=== PATIENT | male | born 1965 | race Caucasian/White ===

== ENCOUNTER 2017-05-16 02:42 | Emergency (ER) | payer MEDICARE ==
[~2017-05-16] VITALS: Ht 175.3 cm; Wt 90.7 kg
[~2017-05-16 02:42] MED LIST: ABILIFY20 MG; DEPAKOTE 500MG500 MG PO
[2017-05-16] MEDS ORDERED: PROZAC 20MG CAP20 MG PO (02:56)
[2017-05-16 03:20] LABS: LYMPH # 2.5 K/mm3 (0.7-4.5); LYMPH % 35.4 % (10-50)
[2017-05-16 03:24] LABS: HEMOGLOBIN 13.5 g/dL (14.1-18.0)
[2017-05-16] MEDS ORDERED: METFORMIN 500M500 MG PO (03:55)
--- NOTE | 2017-05-16 03:59 | Emergency Room Report ---
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 N Clinical Suspician of Infection? N Mental Status: 1 - Regular (Normal Baseline) Sepsis Risk:Low Sepsis Risk Have you (or family members/close friends) recently traveled outside the [place]? N If Yes, where/when: Have you had exposure to infectious disease within the past month? N TB? Other? Specify: Source patient, RN notes reviewed, old records Exam Limitations no limitations Comment pt with elevated glu at home and presentes for eval- no chest pain or fever and no other c/o - has been compliant with diet and meds Cardiac Chest Pain Chest pain indicative of cardiac No Timing/Duration this evening Severity moderate ALLERGIES Coded Allergies: No Known Allergies (05/16/17) Home Medications Reported Medications Divalproex Sodium (Depakote) 500 MG PO BID #60 TAB Aripiprazole (Abilify) Fluoxetine Hcl (Prozac 20MG Capsule(Generic)) 20 MG PO DAILY METFORMIN HCL (Metformin 500MG) 500 MG PO BID History Medical History General CAD? No Angina: No [place]: No Hypertension? Yes Hyperlipidemia? No CHF? No DVT? No PE? No COPD? No Asthma? Yes Anemia? No GERD? No Gastric ulcers? No GI Bleed? No Hernia? Yes Thyroid Problems? No Hypothyroidism? No CVA? No Seizures? No Diabetes? No Insulin Dependent: No Insulin Pump: No Home FSBS? Yes Renal Insuffiency? No End Stage Renal Disease? No UTI? Yes Stones? Yes BPH? No GB Disease: No Nephritic Syndrome? No Asplenia? No Hepatitis? No Sickle Cell Disease? No Arthritis? No Migraines? No Cataracts? No Glaucoma? No MRSA? No HIV? No TB? No Anxiety? No Depression? No Cancer? No More? No Immunization Hx DT/Tetanus > 10 Years Ago Flu [id number] Flu Season Pneumonia Received In Past Surgical Hx Previous Surgery?Y RIGHT ANKLE FX LT FOOT LAWNMOWER ACCIDEN RECONSTRUCTIVE FACIAL SX AORTIC VEIN REATTACHMENT Family History Family Hx Diabetes No CAD No Hypertension No Hyperlipidemia No Cancer Yes TB No Social History Smoking Hx Smoker: Never Smoker Tobacco: No Are you/the child exposed to second-hand smoke: No Alcohol Alcohol: No Drugs none Review of Systems All Other Systems Reviewed and Negative Constitutional denies fever Eyes denies drainage ENT denies: ear discharge, epistaxis, throat pain. Respiratory denies cough, denies shortness of breath Cardiovascular denies chest pain, denies palpitations, denies syncope Gastrointestinal denies abdominal pain, denies diarrhea, denies vomiting Genitourinary denies: dysuria, frequency, hesitancy, hematuria. Musculoskeletal denies back pain, denies joint pain, denies joint swelling, denies neck pain Skin denies rash Psychiatric/Neurological denies headache, denies seizure Physical Exam Vital Signs Vital Signs Date Time Temp Pulse Resp B/P Pulse O2 O2 Flow FiO2 Ox Delivery Rate 05/16 0346 84 20 136/73 96 05/16 0249 97.9 88 20 140/77 98 - WBC >12,000 or <4,000 or 10% bands? 2 or more SIRS Criteria Met? B/P:136/73 MAP:98 Creatinine >2.0? UA output<0.5ml/kg/hr for 2 hrs? Platelet count >100,000? Lactate >2.0mmol/1? INR >1.2 or PTT > than 60 sec? Evidence of Organ Dysfunction? Provider documented clinical suspician of infection? N Sepsis Criteria Count: 1 Sepsis Risk: Low Sepsis Risk General Appearance no apparent distress Eye Exam - bilateral eye PERRL, bilateral eye EOMI Ear, Nose, Throat normal ENT inspection Neck supple Respiratory Status No: respiratory distress. Lung Sounds bilateral: lungs clear. 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 No Results/Orders Laboratory Tests 05/16/17 0353: POC Glucose 193 H 05/16/17 0300: Sodium 136, Potassium 4.9, Chloride 101, Carbon Dioxide 26, BUN 23 H, Creatinine 0.9, Estimated Creat Clear 126, Estimated GFR (MDRD) 89, Glucose 268 H, Calcium 9.1, Total Bilirubin 0.2, AST 34, ALT 30, Alkaline Phosphatase 46, Total Protein 6.6, Albumin 3.6, Globulin 3.0, Albumin/Globulin Ratio 1.2, WBC 7.1, RBC 3.96 L, Hgb 13.5 L, Hct 39.2 L, MCV 99.0 H, RDW 12.3, Plt Count 174 , MPV 7.4, Gran % 58.4, Gran # 4.1, Lymphocytes % 35.4, Monocytes % 4.5, Eosinophils % 1.4, Basophils % 0.3, Lymphocytes # 2.5, Monocytes # 0.3, Eosinophils # 0.1, Basophils # 0.0, PUBS MCHC 34.3, MCH 34.0 H 05/16/17 0248: POC Glucose 270 H Current Medication Orders Sig/Deric Start time Last Medication Dose Route Stop Time Status Admin Sodium Chloride 1,000 ML .Q1H1M 05/16 0400 AC 05/16 IV 05/16 0500 0330 Sodium Chloride 10 ML PRN PRN 05/16 0400 AC IV 05/17 0358 Sodium Chloride 1,000 ML .STK-MED ONE 05/16 0311 DC IV Sodium Chloride 10 ML PRN PRN 05/16 0300 AC IV 05/17 0258 Orders Procedure Date/time Status FINGERSTICK BLOOD SUGAR 05/16 0353 Complete IV SALINE LOCK 05/16 0258 Active GLUCOSE, RANDOM 05/16 0258 Complete CBC WITH AUTO DIFF 05/16 0258 Complete CHEM 12 PROFILE 05/16 0258 Complete FINGERSTICK BLOOD SUGAR 05/16 0248 Complete Departure Departure Time of Disposition 0407 Disposition DC Home or Self Care(routine) Clinical Impression Primary Impression: Diabetes mellitus Qualifiers: Diabetes mellitus type: type 2 Diabetes mellitus complication status: with unspecified complications Diabetes mellitus 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
--- NOTE | 2017-05-16 03:59 | Emergency Room Report ---
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 N Clinical Suspician of Infection? N Mental Status: 1 - Regular (Normal Baseline) Sepsis Risk:Low Sepsis Risk Have you (or family members/close friends) recently traveled outside the [place]? N If Yes, where/when: Have you had exposure to infectious disease within the past month? N TB? Other? Specify: Source patient, RN notes reviewed, old records Exam Limitations no limitations Comment pt with elevated glu at home and presentes for eval- no chest pain or fever and no other c/o - has been compliant with diet and meds Cardiac Chest Pain Chest pain indicative of cardiac No Timing/Duration this evening Severity moderate ALLERGIES Coded Allergies: No Known Allergies (05/16/17) Home Medications Reported Medications Divalproex Sodium (Depakote) 500 MG PO BID #60 TAB Aripiprazole (Abilify) Fluoxetine Hcl (Prozac 20MG Capsule(Generic)) 20 MG PO DAILY METFORMIN HCL (Metformin 500MG) 500 MG PO BID History Medical History General CAD? No Angina: No [place]: No Hypertension? Yes Hyperlipidemia? No CHF? No DVT? No PE? No COPD? No Asthma? Yes Anemia? No GERD? No Gastric ulcers? No GI Bleed? No Hernia? Yes Thyroid Problems? No Hypothyroidism? No CVA? No Seizures? No Diabetes? No Insulin Dependent: No Insulin Pump: No Home FSBS? Yes Renal Insuffiency? No End Stage Renal Disease? No UTI? Yes Stones? Yes BPH? No GB Disease: No Nephritic Syndrome? No Asplenia? No Hepatitis? No Sickle Cell Disease? No Arthritis? No Migraines? No Cataracts? No Glaucoma? No MRSA? No HIV? No TB? No Anxiety? No Depression? No Cancer? No More? No Immunization Hx DT/Tetanus > 10 Years Ago Flu [id number] Flu Season Pneumonia Received In Past Surgical Hx Previous Surgery?Y RIGHT ANKLE FX LT FOOT LAWNMOWER ACCIDEN RECONSTRUCTIVE FACIAL SX AORTIC VEIN REATTACHMENT Family History Family Hx Diabetes No CAD No Hypertension No Hyperlipidemia No Cancer Yes TB No Social History Smoking Hx Smoker: Never Smoker Tobacco: No Are you/the child exposed to second-hand smoke: No Alcohol Alcohol: No Drugs none Review of Systems All Other Systems Reviewed and Negative Constitutional denies fever Eyes denies drainage ENT denies: ear discharge, epistaxis, throat pain. Respiratory denies cough, denies shortness of breath Cardiovascular denies chest pain, denies palpitations, denies syncope Gastrointestinal denies abdominal pain, denies diarrhea, denies vomiting Genitourinary denies: dysuria, frequency, hesitancy, hematuria. Musculoskeletal denies back pain, denies joint pain, denies joint swelling, denies neck pain Skin denies rash Psychiatric/Neurological denies headache, denies seizure Physical Exam Vital Signs Vital Signs Date Time Temp Pulse Resp B/P Pulse O2 O2 Flow FiO2 Ox Delivery Rate 05/16 0346 84 20 136/73 96 05/16 0249 97.9 88 20 140/77 98 - WBC >12,000 or <4,000 or 10% bands? 2 or more SIRS Criteria Met? B/P:136/73 MAP:98 Creatinine >2.0? UA output<0.5ml/kg/hr for 2 hrs? Platelet count >100,000? Lactate >2.0mmol/1? INR >1.2 or PTT > than 60 sec? Evidence of Organ Dysfunction? Provider documented clinical suspician of infection? N Sepsis Criteria Count: 1 Sepsis Risk: Low Sepsis Risk General Appearance no apparent distress Eye Exam - bilateral eye PERRL, bilateral eye EOMI Ear, Nose, Throat normal ENT inspection Neck supple Respiratory Status No: respiratory distress. Lung Sounds bilateral: lungs clear. 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 No Results/Orders Laboratory Tests 05/16/17 0353: POC Glucose 193 H 05/16/17 0300: Sodium 136, Potassium 4.9, Chloride 101, Carbon Dioxide 26, BUN 23 H, Creatinine 0.9, Estimated Creat Clear 126, Estimated GFR (MDRD) 89, Glucose 268 H, Calcium 9.1, Total Bilirubin 0.2, AST 34, ALT 30, Alkaline Phosphatase 46, Total Protein 6.6, Albumin 3.6, Globulin 3.0, Albumin/Globulin Ratio 1.2, WBC 7.1, RBC 3.96 L, Hgb 13.5 L, Hct 39.2 L, MCV 99.0 H, RDW 12.3, Plt Count 174 , MPV 7.4, Gran % 58.4, Gran # 4.1, Lymphocytes % 35.4, Monocytes % 4.5, Eosinophils % 1.4, Basophils % 0.3, Lymphocytes # 2.5, Monocytes # 0.3, Eosinophils # 0.1, Basophils # 0.0, PUBS MCHC 34.3, MCH 34.0 H 05/16/17 0248: POC Glucose 270 H Current Medication Orders Sig/Deric Start time Last Medication Dose Route Stop Time Status Admin Sodium Chloride 1,000 ML .Q1H1M 05/16 0400 AC 05/16 IV 05/16 0500 0330 Sodium Chloride 10 ML PRN PRN 05/16 0400 AC IV 05/17 0358 Sodium Chloride 1,000 ML .STK-MED ONE 05/16 0311 DC IV Sodium Chloride 10 ML PRN PRN 05/16 0300 AC IV 05/17 0258 Orders Procedure Date/time Status FINGERSTICK BLOOD SUGAR 05/16 0353 Complete IV SALINE LOCK 05/16 0258 Active GLUCOSE, RANDOM 05/16 0258 Complete CBC WITH AUTO DIFF 05/16 0258 Complete CHEM 12 PROFILE 05/16 0258 Complete FINGERSTICK BLOOD SUGAR 05/16 0248 Complete Departure Departure Time of Disposition 0407 Disposition DC Home or Self Care(routine) Clinical Impression Primary Impression: Diabetes mellitus Qualifiers: Diabetes mellitus type: type 2 Diabetes mellitus complication status: with unspecified complications 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
[2017-05-16 04:15] VITALS: BP 136/73
[2017-05-26] MEDS ORDERED: AMOXICILLIN875 MG PO (17:56)
== END 2017-05-16 04:17 | disposition home or self-care (01) ==
LOC: ER 02:42
PROVIDERS: Emergency Medicine
DX: E11.8 Type 2 diabetes mellitus with unspecified complications (principal); I10 Essential (primary) hypertension